=== PATIENT | female | born 1970 | race Caucasian/White ===

== ENCOUNTER 2023-07-27 14:30 | Outpatient (CLI) | payer BC, MEDICARE | END 2023-07-27 14:31 | disposition home or self-care (01) | LOC: CSHWCC 14:30 | PROVIDERS: ATTEND Family Medicine | DX: E11.622 Type 2 diabetes mellitus with other skin ulcer (principal); L02.12 Furuncle of neck; T81.31XD Disruption of external operation (surgical) wound, not elsewhere classified, subsequent encounter; M06.9 Rheumatoid arthritis, unspecified | CPT/HCPCS: 99213; G0463 ==

== ENCOUNTER 2023-08-03 13:00 | Outpatient (CLI) | payer BC, MEDICARE | END 2023-08-03 13:01 | disposition home or self-care (01) | LOC: CSHWCC 13:00 | PROVIDERS: ATTEND Nurse Practitioner Family | DX: T81.31XD Disruption of external operation (surgical) wound, not elsewhere classified, subsequent encounter (principal); E11.622 Type 2 diabetes mellitus with other skin ulcer; L02.212 Cutaneous abscess of back [any part, except buttock and flank]; M06.9 Rheumatoid arthritis, unspecified | CPT/HCPCS: 99213; G0463 ==

== ENCOUNTER 2023-08-10 10:24 | Outpatient (CLI) | payer BC, MEDICARE | END 2023-08-10 10:25 | disposition home or self-care (01) | LOC: CSHWCC 10:24 | PROVIDERS: ATTEND Nurse Practitioner Family | DX: T81.31XD Disruption of external operation (surgical) wound, not elsewhere classified, subsequent encounter (principal); L02.212 Cutaneous abscess of back [any part, except buttock and flank]; E11.622 Type 2 diabetes mellitus with other skin ulcer; M06.9 Rheumatoid arthritis, unspecified | CPT/HCPCS: 97597 ==